=== PATIENT | female | born 1965 | race Caucasian/White ===

== ENCOUNTER 2021-12-12 19:30 | Emergency (ER) | payer MEDICARE ==
[2021-12-12 19:50] VITALS: BP 134/90; PULSE 120
== END 2021-12-12 21:00 | disposition home or self-care (01) ==
LOC: LB.ED 19:30
DX: M25.551 Pain in right hip (principal); Z88.2 Allergy status to sulfonamides; Z88.8 Allergy status to other drugs, medicaments and biological substances
CPT/HCPCS: 73502-RT; 99282; 99283